=== PATIENT | male | born 1985 | race American Indian/Alaskan Native ===

== ENCOUNTER 2019-10-27 23:12 | Emergency (ER) | payer MEDICAID ==
[2019-10-27] MEDS ORDERED: Clindamycin HCl 150 MG Cap PO ONE (23:13)
[2019-10-27] MEDS ORDERED: Lidocaine 2% Viscous Solution 15 ML Cup PO ONE (23:13)
[2019-10-28] MEDS ORDERED: Clindamycin HCl 150 MG Cap ONE (00:11)
[2019-10-28] MEDS ORDERED: Lidocaine 2% Viscous Solution 15 ML Cup ONE (00:11)
--- NOTE | 2019-10-28 00:12 | EDM.PDOC ---
ED HPI GENERAL MEDICAL PROBLEM - General Chief Complaint: ENT Problem Stated Complaint: LEFT & RIGHT BACK TEETH ONE IS CRACKED TONIGHT Time Seen by Provider: 10/27/19 23:30 Source of Information: Reports: Patient History Limitations: Reports: No Limitations - History of Present Illness INITIAL COMMENTS - FREE TEXT/NARRATIVE: ED with c/o bilateral lower jaw and dental pain, worse tonight after eating , Admits long time since last saw dentist. Has had pain with drinking cold liquids recently. No fever or chills. Bilateral Lower Gums Pain Score (Numeric/FACES): 8 - Related Data Allergies Allergy/AdvReac Type Severity Reaction Status Date / Time Penicillins Allergy Cannot Verified 10/27/19 23:35 Remember Home Meds: Home Meds . [No Known Home Meds] 10/27/19 [History] Past Medical History - Past Health History Medical/Surgical History: Denies Medical/Surgical History Social & Family History - Tobacco Use Smoking Status *Q: Current Every Day Smoker Years of Tobacco use: 12 Packs/Tins Daily: 0.5 Second Hand Smoke Exposure: Yes - Recreational Drug Use Recreational Drug Use: No ED ROS ENT - Review of Systems Review Of Systems: Comprehensive ROS is negative, except as noted in HPI. ED EXAM, ENT - Physical Exam Exam: See Below Exam Limited By: No Limitations General Appearance: Alert, No Apparent Distress Eye Exam: Bilateral Eye: EOMI Ears: Normal External Exam, Hearing Grossly Normal Nose: Normal Inspection Mouth/Throat: Dental Pain, Other (generalized poor dentation mild swelling right posteror lower gum) Head: Atraumatic, Normocephalic Neck: Lymphadenopathy (L), Lymphadenopathy (R) (upper anterior) Respiratory/Chest: Lungs Clear Cardiovascular: Regular Rate, Rhythm Extremities: Normal Range of Motion Neurological: Alert, Oriented, Normal Cognition Psychiatric: Normal Affect, Normal Mood Skin: Warm, Dry, Normal Color Course - Vital Signs Last Recorded V/S: Last Vital Signs Temp 98.4 F 10/27/19 23:28 Pulse 93 10/27/19 23:28 Resp 18 10/27/19 23:28 BP 131/88 10/27/19 23:28 Pulse Ox 99 10/27/19 23:28 - Orders/Labs/Meds Meds: Medications Discontinued Medications Generic Name Dose Route Start Last Admin Trade Name Freq PRN Reason Stop Dose Admin Clindamycin HCl Confirm 10/28/19 00:11 Cleocin Administered 10/28/19 00:12 Dose 600 mg .ROUTE .STK-MED ONE Lidocaine HCl Confirm 10/28/19 00:11 Xylocaine 2% Viscous Administered 10/28/19 00:12 Dose 15 ml .ROUTE .STK-MED ONE Departure - Departure Time of Disposition: 00:05 Disposition: Home, Self-Care 01 Condition: Good Clinical Impression: Dental caries extending into dentin, Dental caries, Pain due to dental caries - Discharge Information *PRESCRIPTION DRUG MONITORING PROGRAM REVIEWED*: No *COPY OF PRESCRIPTION DRUG MONITORING REPORT IN PATIENT EM: No Instructions: Dental Extraction, Care After, [id number] Referrals: PCP,None [Primary Care Provider] - Forms: ED Department Discharge Additional Instructions: alternate tylenol and ibuprofen every 4 hours as needed for discomfort viscous lidocaine around teeth every 2 hours sa needed clindamycin 300mg 3 times daily for one week follow up with dentist Sepsis Event Note (ED) - Evaluation Sepsis Screening Result: No Definite Risk - Focused Exam Vital Signs: Vital Signs Temp Pulse Resp BP Pulse Ox 10/27/19 23:28 98.4 F 93 18 131/88 99
== END 2019-10-28 00:17 | disposition home or self-care (01) ==
LOC: DL.ED 23:12
DX: K02.9 Dental caries, unspecified (principal); F17.210 Nicotine dependence, cigarettes, uncomplicated; Z88.0 Allergy status to penicillin
CPT/HCPCS: 99283; A9270-GY